=== PATIENT | male | born 1995 | race Caucasian/White ===

== ENCOUNTER 2019-11-29 13:49 | Emergency (ER) | payer OTHER ==
[2019-11-29] MEDS ORDERED: KETOROLAC TROMETHAMINE 60 MG/2 ML SDV IM ONE (14:02)
[2019-11-29 14:04] VITALS: BP 142/78
--- NOTE | 2019-11-29 14:05 | ER Document Report ---
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 He reports he woke up Sunday with the pain. Denies trauma. Denies fever vomiting diarrhea. Reports it hurts when he takes a deep breath. 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 He has been taking Tylenol, Motrin and a muscle relaxer without relief of symptoms. Last time he took Motrin was yesterday. Denies past medical history of injury to his back. Patient reports he did have his try to massage the area it did not help. Associated Symptoms: None Exacerbated by: Movement, Deep breathing Relieved by: Denies Similar symptoms previously: No Recently seen / treated by doctor: No Past Medical History - General Information source: Patient - Social History Smoking Status: Never Smoker Chew tobacco use (# tins/day): No Frequency of alcohol use: None Drug Abuse: None Occupation: [employer] [place] Lives with: Family Family History: None Patient has suicidal ideation: No Patient has homicidal ideation: No - Medical History Medical History: Negative Surgical Hx: Negative Vertical Provider Document - CONSTITUTIONAL Agree With Documented VS: Yes Exam Limitations: No Limitations General Appearance: WD/WN, No Apparent Distress - facial grimaces with movement and palpation to upper left side of back - INFECTION CONTROL TRAVEL OUTSIDE OF THE [place] IN LAST 30 DAYS: No - HEENT HEENT: Atraumatic, Normocephalic. negative: Conjuctival Injection - NECK Neck: Normal Inspection, Supple - chin to chest without c/o pain. negative: Lymphadenopathy-Left, Lymphadenopathy-Right - RESPIRATORY Respiratory: Breath Sounds Normal, No Respiratory Distress, Chest Non-Tender - CARDIOVASCULAR Cardiovascular: Regular Rhythm, Tachycardia - BACK Back: Normal Inspection - No obvious deformity no erythema no swelling, good distal movement and sensation no vertebral tenderness. Patient complains of upper back pain in the trapezius area. - MUSCULOSKELETAL/EXTREMETIES Musculoskeletal/Extremeties: BLANE MERCHANT - NEURO Level of Consciousness: Awake, Alert, Appropriate Motor/Sensory: No Motor Deficit - DERM Integumentary: Warm, Dry Course - Re-evaluation Re-evalutation: 11/29/19 14:11 24-year-old healthy male presents with upper left-sided back pain that started for approximately 1 week. Reports it started when he woke up. Denies trauma. Denies past medical history of injury to the back. Denies other symptoms such as fever vomiting diarrhea. No complaints of urinary bowel incontinence or retention. Patient is very tender in the trapezius area on the left side. Denies vertebral tenderness. Patient does have muscle relaxers at home and ibuprofen. He was instructed to continue taking his medications as prescribed. He was given a shot of Toradol here. He was also instructed follow-up with his BAS Sunday. He verbalized understanding to all instructions. Discharge - Discharge Clinical Impression: Upper back pain on left side, trapezius muscle pain Condition: Stable Disposition: HOME, SELF-CARE Instructions: Use of Kunf-Hcz-Dwmhaww Ibuprofen ([facility]), Ice Packs ([facility]), Muscle Relaxers ([facility]), Toradol Injection ([facility]) Additional Instructions: *You have been evaluated for upper back pain *Take your muscle relaxer and ibuprofen as prescribed *Rest/Ice packs/massage *Follow up with your BAS Sunday for recheck *Return to ED for worsening condition, changes, needs
== END 2019-11-29 14:11 | disposition home or self-care (01) ==
LOC: ER 13:49
DX: M79.18 Myalgia, other site (principal)
CPT/HCPCS: 99283; 96372; J1885

== ENCOUNTER 2019-11-29 23:13 | Emergency (ER) | payer OTHER ==
--- NOTE | 2019-11-30 00:36 | ER Document Report ---
ED General - General Chief Complaint: Back Pain Stated Complaint: BACK PAIN Time Seen by Provider: 11/30/19 00:23 TRAVEL OUTSIDE OF THE [place] IN LAST 30 DAYS: No - HPI Notes: Patient is a 24-year-old male who presents to the emergency department for evaluation of back pain. He was actually seen here earlier today. He was diagnosed with musculoskeletal back pain, given Toradol. He states he does not believe this is musculoskeletal pain. The reason being is that he took Flexeril at home which did not relieve his pain, which had relieved his musculoskeletal pain in the past. He admits to heavy lifting, bending. He admits his pain is worsened with movement and palpation. He admits is worsened with lifting. He denies any numbness or tingling. No weakness. No bowel or bladder incontinence, no saddle anesthesia. He denies any significant injury. He has had no fevers or chills. No nausea or vomiting. He states he has had a mildly diminished appetite since this pain has been persistent. - Related Data Allergies/Adverse Reactions: No Known Allergies Allergy (Unverified 11/29/19 13:59) Past Medical History - General Information source: Patient - Social History Smoking Status: Never Smoker Chew tobacco use (# tins/day): No Frequency of alcohol use: Occasional Drug Abuse: None Family History: None Patient has suicidal ideation: No Patient has homicidal ideation: No Review of Systems - Review of Systems Constitutional: See HPI Musculoskeletal: See HPI -: Yes All other systems reviewed and negative Physical Exam - Vital signs Vitals: Temp Pulse Resp BP Pulse Ox 97.9 F 85 18 134/72 H 99 11/29/19 23:16 11/29/19 23:16 11/29/19 23:16 11/29/19 23:16 11/29/19 23:16 - Notes Notes: Vital signs reviewed, please refer to chart. Head is normocephalic, atraumatic. Pupils equal round, reactive to light. Neck is supple without meningismus. Heart is regular rate and rhythm. Lungs are clear to auscultation bilaterally. Abdomen is soft, nontender, normoactive bowel sounds throughout. Examination of the spine yields no midline step-off. He has midline tenderness at T7/8 with no obvious deformity. He has paraspinal musculature tenderness, left greater than right, from T6 down through L1/2. Strength is plus 5 out of 5 bilateral upper and lower extremities. Biceps and brachioradialis reflexes are 2+, sensation is intact. Course - Re-evaluation Re-evalutation: 11/30/19 00:36 Patient is a 24-year-old male who presents to the emergency department for evaluation. He has no risk factors for pulmonary embolus. His heart rate is normal. His pain is reproducible. I still strongly suspect musculoskeletal back pain in this patient. He was sent for an x-ray given his midline tenderness. Patient is stable at this time, we will continue to monitor. 11/30/19 01:26 X-ray reviewed and unremarkable. Findings explained to the patient. Again this seems like mechanical back pain. I will add prednisone. He is given his first dose here. We will send him home with a taper. He is told to follow-up with primary care. If his symptoms do not improve he may require physical therapy or other modalities for improvement. He is to follow-up, return to the ER with worsening. - Vital Signs Vital signs: Temp Pulse Resp BP Pulse Ox 97.9 F 85 18 134/72 H 99 11/29/19 23:16 11/29/19 23:16 11/29/19 23:16 11/29/19 23:16 11/29/19 23:16 - Diagnostic Test Radiology reviewed: Image reviewed, Reports reviewed Radiology results interpreted by me: 11/30/19 01:27 Thoracic Spine X-Ray 11/30/19 00:31 IMPRESSION: There are no findings to suggest an acute fracture within the thoracic spine. Discharge - Discharge Clinical Impression: Acute thoracic back pain Qualifiers: Back pain laterality: bilateral Qualified Code(s): M54.6 - Pain in thoracic spine Condition: Stable Disposition: HOME, SELF-CARE Instructions: Muscle Strain ([facility]), Warm Packs ([facility]) Additional Instructions: Moist heat to the painful area. Take prednisone as directed until it is gone. Continue Flexeril at home as needed, please watch for dizziness and drowsiness with this medication. Follow-up with primary care in 1 to 2 weeks. If you develop fevers, shortness of breath, weakness, or any other new or concerning symptoms, please return immediately to the ER for further evaluation.
--- NOTE | 2019-11-30 01:10 | RADIOLOGY REPORT (SQ) ---
THORACIC SPINE: 11/30/2019 12:09 AM CDT TECHNIQUE: AP and lateral views of the thoracic spine were obtained. COMPARISON: None available HISTORY: 24 -year old patient with back pain. FINDINGS: The vertebral bodies appear well-aligned. The vertebral body heights appear to be maintained. No significant intervertebral disc space narrowing is seen. There is no evidence of acute fracture or subluxation. IMPRESSION: There are no findings to suggest an acute fracture within the thoracic spine.
[2019-11-30] MEDS ORDERED: PREDNISONE 20 MG TABLET PO ONE (01:24)
[2019-11-30 01:50] VITALS: BP 118/69
== END 2019-11-30 02:36 | disposition home or self-care (01) ==
LOC: ER 23:13
DX: M54.6 Pain in thoracic spine (principal); R63.0 Anorexia
CPT/HCPCS: 99283; 72070; J7512